=== PATIENT | male | born 1985 | race Two or more races ===

== ENCOUNTER 2019-03-13 02:39 | Emergency (ER) | payer SELFPAY ==
[~2019-03-13] VITALS: Ht 162.6 cm; Wt 102.5 kg
[2019-03-13 02:45] VITALS: Ht 162.6 cm; Wt 102.5 kg
[2019-03-13 05:12] VITALS: BP 178/76
== END 2019-03-13 05:12 | disposition home or self-care (01) ==
LOC: ED 02:39
DX: J40 Bronchitis, not specified as acute or chronic (principal); B34.9 Viral infection, unspecified
CPT/HCPCS: 87804; J1885